=== PATIENT | female | born 1980 | race Caucasian/White ===

== ENCOUNTER → 2021-02-26 | Outpatient (CLI) | payer BC ==
[~2021-02-26] MED LIST: ACHYD1T PO; LVT.05T PO; NITR100C3 PO
--- NOTE | 2021-02-27 18:42 | Diagnostic Imaging Report ---
INDICATION: Routine screening. COMPARISON is made with prior mammogram from 01/18/2014. 2-D and 3-D bilateral screening mammography was performed with CAD. Both breasts are heterogeneously dense, limiting the sensitivity of mammography. No mass or malignant-appearing microcalcifications are seen. Axillae are unremarkable. IMPRESSION: BI-RADS Category 1 No mammographic features suspicious for malignancy are identified. ACR BI-RADS Category 1: Negative. Result letter will be mailed to the patient. Note: At least 10% of breast cancer is not imaged by mammography. Dictated by: Dictated on workstation # [id number]
== END ==
LOC: RAD 15:35
PROVIDERS: ATTEND Obstetrics & Gynecology
DX: Z12.31 Encounter for screening mammogram for malignant neoplasm of breast (principal)
CPT/HCPCS: 77063; 77067

== ENCOUNTER → 2022-05-06 | Outpatient (CLI) | payer BC ==
--- NOTE | 2022-05-06 11:56 | Diagnostic Imaging Report ---
INDICATION: Routine screening. COMPARISON: 02/26/2021 and 01/18/2014. TECHNIQUE: 2D and 3D bilateral screening mammography was performed with CAD. FINDINGS: Both breasts are heterogeneously dense, limiting the sensitivity of mammography. No mass or malignant-appearing microcalcifications are seen. The axillae are unremarkable. IMPRESSION: No mammographic features suspicious for malignancy are identified. ACR BI-RADS Category 1: Negative. Result letter will be mailed to the patient. Note: At least 10% of breast cancer is not imaged by mammography. Dictated by: Dictated on workstation # [id number]
== END ==
LOC: RAD 08:58
PROVIDERS: ATTEND Obstetrics & Gynecology
DX: Z12.31 Encounter for screening mammogram for malignant neoplasm of breast (principal)
CPT/HCPCS: 77063; 77067